=== PATIENT | female | born 1990 | race Caucasian/White ===

== ENCOUNTER 2017-12-13 08:42 | Emergency (ER) | payer OTHER ==
[~2017-12-13] VITALS: Ht 167.6 cm; Wt 75.1 kg
[2017-12-13 08:43] VITALS: TEMP 36.8; Ht 167.6 cm; Wt 75.1 kg
[2017-12-13 09:42] LABS: BASO % 0.4 %; BASO ABS # 0.02 K/uL (0-0.2); EOS % 1.6 %; EOS ABS # 0.08 K/uL (0-0.5); HEMATOCRIT 39.4 % (37-47); HEMOGLOBIN 13.2 g/dL (12.0-16.0); IG# 0.01 K/uL (0.00-0.02); LYMPH % 30.7 %; LYMPH ABS # 1.54 K/uL (1.2-3.4); MEAN CELL VOLUME 85.7 fL (80-100); MEAN CORPUSCULAR HEMOGLOBIN 28.7 pg (25-34); MEAN CORPUSCULAR HGB CONC 33.5 g/dl (32-36); MEAN PLATELET VOLUME 11.2 fL (7.4-10.4); MONO % 6.6 %; MONO ABS # 0.33 K/uL (0.11-0.59); NEUT % 60.5 %; NEUT ABS # 3.03 K/uL (1.4-6.5); PLATELET COUNT 185 K/uL (130-400); RED CELL DISTRIBUTION WIDTH CV 13.2 % (11.5-14.5); RED CELL DISTRIBUTION WIDTH SD 41.2 fL (36.4-46.3); WHITE BLOOD COUNT 5.01 K/uL (4.8-10.8)
[2017-12-13 09:54] LABS: ALBUMIN 3.8 gm/dl (3.4-5.0); CALCIUM 8.8 mg/dl (8.5-10.1); CREATININE 0.83 mg/dl (0.60-1.20); POTASSIUM 4.1 mmol/L (3.5-5.1)
[2017-12-13 10:04] LABS: TOTAL PROTEIN 7.8 gm/dl (6.4-8.2)
--- NOTE | 2017-12-13 10:57 | DIAGNOSTIC IMAGING REPORT ---
TRANSVAG-FEMALE PELVIS HISTORY: Pain DYSMENORRHEA COMPARISON: None. FINDINGS: Uterus: 7 cm. Retroverted configuration. Endometrial stripe: 5 mm Right ovary: 4.0 cm maximum dimension with normal vascular flow Left ovary: 2.5 cm maximum dimension with normal vascular flow Miscellaneous:No pelvic free fluid. IMPRESSION: Normal study. Retroflexed uterus. The above report was generated using voice recognition software. It may contain grammatical, syntax or spelling errors. Electronically signed by: James Cuellar M.D. 12/13/2017 10:56 AM Dictated Date/Time: 12/13/2017 10:55 AM
[2017-12-13 11:31] VITALS: BP 124/67; PULSE 62; O2SAT 96
--- NOTE | 2017-12-13 14:05 | EMERGENCY ROOM VISIT NOTE ---
History First contact with patient: 08:56 Chief Complaint: PELVIC PAIN Stated Complaint: EXTREME OVARY PAIN-SHOCK PAINS FROM OVARIES-COLON History of Present Illness The patient is a 27 year old female who presents to the Emergency Room with complaints of progressively worsening dysmenorrhea. The patient reports that she has had these symptoms for the past 2 years. She is scheduled for an appointment in January with an [facility]. The patient reports that her NCC is usually very heavy. OB history is with normal vaginal delivery. The patient reports family history of endometriosis. She has not noticed any change in stools, and denies any discomfort with urination. Does report dyspareunia as well. She rates her discomfort a 9 out of 10. Review of Systems HEENT: Denies dizziness, visual problems, hearing loss, tinnitus. Denies difficulty swallowing or oral lesions. PULMONARY: Denies cough, shortness of breath, sputum production or hemoptysis. CARDIOVASCULAR: Denies chest pain, palpitations, dyspnea on exertion, orthopnea or peripheral edema. GASTROINTESTINAL: Denies diarrhea, constipation, nausea or vomiting. GENITOURINARY: Denies dysuria, frequency, urgency or nocturia. Otherwise see HPI. NEUROLOGIC: Denies history of epilepsy, CVA, TIA or chronic headaches. MUSCULOSKELETAL: Denies history of joint tenderness/swelling. SKIN: Denies rashes or lesions. PSYCHIATRIC: Denies history of depression or mental illness. ENDOCRINE: Denies history of diabetes or thyroid disorders. Past Medical/Surgical History Medical Problems: (1) Dysmenorrhea Surgical Problems: (1) History of cholecystectomy Family History FH: cancer FH: diabetes mellitus FH: gallbladder disease FH: hypertension FH: kidney disease Social History Smoking Status: Former Smoker Alcohol Use: occasionally Marital Status: Housing Status: lives with family Occupation Status: employed Current/Historical Medications No Active Prescriptions or Reported Meds Physical Exam Vital Signs Date Time Temp Pulse Resp B/P (MAP) Pulse Ox O2 Delivery O2 Flow Rate FiO2 12/13/17 11:31 62 18 124/67 96 12/13/17 08:43 36.8 96 18 139/89 100 Room Air Physical Exam CONSTITUTIONAL: Healthy and well nourished. Alert and oriented X 3 with positive affect. Patient does not appear in any acute distress. HEENT: Normocephalic, atraumatic. Pupils equal, round and reactive. No scleral icterus or conjunctival pallor. NECK: Full active range of motion without discomfort. RESPIRATORY: Clear to auscultation bilaterally with no wheezing, crackles, rhonchi or stridor. CARDIOVASCULAR: Regular rate and rhythm with no murmurs, rubs or gallops. GASTROINTESTINAL: Bowel sounds present in all quadrants. Patient has suprapubic tenderness to palpation. Negative CVA tenderness. No abdominal rigidity, guarding or rebound. MUSCULOSKELETAL: Full range of motion of all joints without discomfort. INTEGUMENTARY: No rash or other significant dermatologic conditions noted. HEMATOLOGIC: No ecchymosis or petechiae. NEUROLOGIC: No focal neurologic deficits noted. Medical Decision & Procedures ER Provider Diagnostic Interpretation: Pelvic ultrasound shows no acute findings. Radiologist report is as follows: TRANSVAG-FEMALE PELVIS HISTORY: Pain DYSMENORRHEA COMPARISON: None. FINDINGS: Uterus: 7 cm. Retroverted configuration. Endometrial stripe: 5 mm Right ovary: 4.0 cm maximum dimension with normal vascular flow Left ovary: 2.5 cm maximum dimension with normal vascular flow Miscellaneous:No pelvic free fluid. IMPRESSION: Normal study. Retroflexed uterus. Laboratory Results 12/13/17 09:25 Red Blood Count 4.60, Mean Corpuscular Volume 85.7, Mean Corpuscular Hemoglobin 28.7, Mean Corpuscular Hemoglobin Concent 33.5, Mean Platelet Volume 11.2, Neutrophils (%) (Auto) 60.5, Lymphocytes (%) (Auto) 30.7, Monocytes (%) (Auto) 6.6, Eosinophils (%) (Auto) 1.6, Basophils (%) (Auto) 0.4, Neutrophils # (Auto) 3.03, Lymphocytes # (Auto) 1.54, Monocytes # (Auto) 0.33, Eosinophils # (Auto) 0.08, Basophils # (Auto) 0.02 12/13/17 09:25 Test 12/13/17 09:13 12/13/17 09:25 Urine Color YELLOW Urine Appearance CLEAR (CLEAR) Urine pH 5.5 (4.5-7.5) Urine Specific [place] 1.012 (1.000-1.030) Urine Protein NEG (NEG) Urine Glucose (UA) NEG (NEG) Urine Ketones NEG (NEG) Urine Occult Blood 3+ (NEG) Urine Nitrite NEG (NEG) Urine Bilirubin NEG (NEG) Urine Urobilinogen NEG (NEG) Urine Leukocyte Esterase NEG (NEG) Urine WBC (Auto) 1-5 /hpf (0-5) Urine RBC (Auto) >30 /hpf (0-4) Urine Hyaline Casts (Auto) 0 /lpf (0-5) Urine Epithelial Cells (Auto) 10-20 /lpf (0-5) Urine Bacteria (Auto) NEG (NEG) Urine Test NEG (NEG) White Blood Count 5.01 K/uL (4.8-10.8) Red Blood Count 4.60 M/uL (4.2-5.4) Hemoglobin 13.2 g/dL (12.0-16.0) Hematocrit 39.4 % (37-47) Mean Corpuscular Volume 85.7 fL (80-100) Mean Corpuscular Hemoglobin 28.7 pg (25-34) Mean Corpuscular Hemoglobin Concent 33.5 g/dl (32-36) Platelet Count 185 K/uL (130-400) Mean Platelet Volume 11.2 fL (7.4-10.4) Neutrophils (%) (Auto) 60.5 % Lymphocytes (%) (Auto) 30.7 % Monocytes (%) (Auto) 6.6 % Eosinophils (%) (Auto) 1.6 % Basophils (%) (Auto) 0.4 % Neutrophils # (Auto) 3.03 K/uL (1.4-6.5) Lymphocytes # (Auto) 1.54 K/uL (1.2-3.4) Monocytes # (Auto) 0.33 K/uL (0.11-0.59) Eosinophils # (Auto) 0.08 K/uL (0-0.5) Basophils # (Auto) 0.02 K/uL (0-0.2) RDW Standard Deviation 41.2 fL (36.4-46.3) RDW Coefficient of Variation 13.2 % (11.5-14.5) Immature Granulocyte % (Auto) 0.2 % Immature Granulocyte # (Auto) 0.01 K/uL (0.00-0.02) Anion Gap 4.0 mmol/L (3-11) Est Creatinine Clear Calc Drug Dose 106.4 ml/min Estimated GFR () 112.8 Estimated GFR (Non- 97.3 BUN/Creatinine Ratio 16.0 (10-20) Calcium Level 8.8 mg/dl (8.5-10.1) Total Bilirubin 0.4 mg/dl (0.2-1) Direct Bilirubin 0.1 mg/dl (0-0.2) Aspartate Amino Transf (AST/SGOT) 8 U/L (15-37) Alanine Aminotransferase (ALT/SGPT) 17 U/L (12-78) Alkaline Phosphatase 56 U/L (45-117) Total Protein 7.8 gm/dl (6.4-8.2) Albumin 3.8 gm/dl (3.4-5.0) Lipase 181 U/L (73-393) Thyroid Stimulating Hormone (TSH) 2.570 uIu/ml (0.300-4.500) The above labs were reviewed. ED Course Patient history and physical exam were performed. Nurse's notes were reviewed. The patient refused any analgesics on initial exam. IV access was established , and labs were drawn. Review of labs did not show any acute findings. Urinalysis shows no evidence for infection, and urine was negative. Pelvic ultrasound was also normal. I suggested that the patient follow-up with [facility] for further reevaluation. She was encouraged to take ibuprofen and Tylenol in alternating fashion as needed for pain. Return to the emergency department for any significantly worsening bleeding, worsening pain, developing fever or or other concerning symptoms. The patient was happy with plan of care, and voiced understanding of all discharge instructions. Medical Decision Patient presents with complaints of dysmenorrhea and heavy menstrual bleeding. Her ultrasound today is normal. Endometriosis is also on the possible differentials. I do not suspect ovarian torsion. No ovarian cysts are seen on ultrasound. Urine is negative. Medication Reconcilliation Current Medication List: was personally reviewed by me Blood Pressure Screening Patient's blood pressure: Normal blood pressure Impression Primary Impression: Dysmenorrhea Departure Information Prescriptions No Active Prescriptions or Reported Meds Referrals No Doctor, Assigned (PCP) Patient Instructions [facility]
== END 2017-12-13 11:32 | disposition home or self-care (01) ==
LOC: C.EDB 08:44
DX: N94.6 Dysmenorrhea, unspecified (principal); Z87.891 Personal history of nicotine dependence; Z84.2 Family history of other diseases of the genitourinary system; Z80.9 Family history of malignant neoplasm, unspecified; Z83.3 Family history of diabetes mellitus; Z83.79 Family history of other diseases of the digestive system; Z82.49 Family history of ischemic heart disease and other diseases of the circulatory system; Z84.1 Family history of disorders of kidney and ureter